=== PATIENT | male | born 1950 | race Two or more races ===

== ENCOUNTER 2023-03-09 08:25 | Inpatient (IN) | payer MEDICARE ==
[~2023-03-09] VITALS: Ht 170.2 cm; Wt 81.6 kg
[2023-03-09] VITALS (8 sets, daily range): BP systolic 126–148; BP diastolic 75–88; TEMP 97.2–98.2; O2SAT 94–100
[~2023-03-09 08:25] MED LIST: FAMOTIDINE/PF INJ 20 MG/2 ML VIAL IV ONE; FENTANYL PF 100MCG/2ML AMPUL ONE; MIDAZOLAM HCL 2 MG/2ML VIAL ONE; ROCURONIUM BROMIDE 50 MG/5 ML ONE; VANCOMYCIN 1 GM VIAL ONE; dexaMETHasone SOD PHOSPHATE 10 MG/ML VIAL ONE
[2023-03-09] MEDS ORDERED: LIDOCAINE 5% OINT 35.44 GM TUBE ONE (08:29)
[2023-03-09] MEDS ORDERED: LIDOCAINE 2%-EPI 1:100,000 30 ML VIAL ONE (10:42)
[2023-03-09] MEDS ORDERED: ONDANSETRON HCL/PF 4 MG/2 ML VIAL IV PRN (12:00)
[2023-03-09] MEDS ORDERED: HYDROMORPHONE 1 MG/1 ML DISP.SYRIN IV PRN (12:00)
[2023-03-09] MEDS ORDERED: IV NS 0.9% 1,000 ML IV PRN (12:00)
[2023-03-09] MEDS ORDERED: ACETAMINOPHEN 325 MG TABLET PO PRN (12:00)
[2023-03-09] MEDS ORDERED: VANCOMYCIN 1 GM in IV D5W 250ml IV SCH (21:00)
== END 2023-03-09 18:09 | disposition home or self-care (01) | DRG 908 ==
LOC: DS 08:25 → MED 08:26
PROVIDERS: ADMIT Internal Medicine; ATTEND Internal Medicine
PROC: 0NSV04Z Reposition Left Mandible with Internal Fixation Device, Open Approach (ICD-10-PCS; principal; 2023-03-09)
PROC: 0NST04Z Reposition Right Mandible with Internal Fixation Device, Open Approach (ICD-10-PCS; 2023-03-09)
PROC: 0NUT07Z Supplement Right Mandible with Autologous Tissue Substitute, Open Approach (ICD-10-PCS; 2023-03-09)
PROC: 0NBV0ZX Excision of Left Mandible, Open Approach, Diagnostic (ICD-10-PCS; 2023-03-09)
PROC: 0NBT0ZX Excision of Right Mandible, Open Approach, Diagnostic (ICD-10-PCS; 2023-03-09)
DX: T86.831 Bone graft failure (principal); M84.48XK Pathological fracture, other site, subsequent encounter for fracture with nonunion; E78.5 Hyperlipidemia, unspecified; I10 Essential (primary) hypertension; I25.10 Atherosclerotic heart disease of native coronary artery without angina pectoris; Y83.2 Surgical operation with anastomosis, bypass or graft as the cause of abnormal reaction of the patient, or of later complication, without mention of misadventure at the time of the procedure; Z95.5 Presence of coronary angioplasty implant and graft; M27.40 Unspecified cyst of jaw; Y92.89 Other specified places as the place of occurrence of the external cause
CPT/HCPCS: 88305-TC; 88311-TC; 88312-TC; 93307-TC; A4223; C1713; G0378; J1100; J2250; J2370; J2405; J2704; J3010; J3370; J3490; J7030; J7040; J7060

== ENCOUNTER 2023-09-20 08:58 | Inpatient (IN) | payer MEDICARE ==
[2023-09-20] MEDS ORDERED: MIDAZOLAM HCL 2 MG/2ML VIAL ONE (10:47)
[2023-09-20] MEDS ORDERED: FAMOTIDINE/PF INJ 20 MG/2 ML VIAL IV ONE (10:47)
[2023-09-20] MEDS ORDERED: ROCURONIUM BROMIDE 50 MG/5 ML ONE (10:47)
[2023-09-20] MEDS ORDERED: FENTANYL PF 100MCG/2ML AMPUL ONE (10:47)
[2023-09-20] MEDS ORDERED: VANCOMYCIN 1 GM VIAL ONE (10:59)
[2023-09-20] MEDS ORDERED: dexaMETHasone SOD PHOSPHATE 1 ML ONE (10:59)
[2023-09-20] MEDS ORDERED: LIDOCAINE 2%-EPI 1:100,000 30 ML VIAL ONE (11:52)
[2023-09-20] MEDS ORDERED: ACETAMINOPHEN 325 MG TABLET PO PRN (14:00)
[2023-09-20] MEDS ORDERED: HYDROMORPHONE 1 MG/1 ML DISP.SYRIN IV PRN (14:00)
[2023-09-20] MEDS ORDERED: IV NS 0.9% 1,000 ML IV PRN (14:00)
[2023-09-20] MEDS ORDERED: ONDANSETRON HCL/PF 4 MG/2 ML VIAL IV PRN (14:00)
[2023-09-20] MEDS ORDERED: ICOS1CAP PO (14:54)
[2023-09-20] MEDS ORDERED: CHOL200059 PO (14:54)
[2023-09-20] MEDS ORDERED: AMLO-212 PO (14:54)
[2023-09-20] MEDS ORDERED: APIX5TAB PO (14:54)
[2023-09-20] MEDS ORDERED: ASPI-1420 PO (14:54)
[2023-09-20] MEDS ORDERED: ATOR40TA PO (14:54)
[2023-09-20] MEDS ORDERED: METO25TA6 PO (14:54)
[2023-09-20] MEDS ORDERED: DRON400T6 PO (14:54)
[2023-09-20] MEDS ORDERED: VITA-354 PO (14:54)
[2023-09-20] MEDS ORDERED: LOSA50TA39 PO (14:54)
[2023-09-20] MEDS ORDERED: VANCOMYCIN 1 GM in IV D5W 250ml IV SCH (23:00)
== END 2023-09-20 17:15 | disposition left against medical advice (07) | DRG 496 ==
LOC: DS 08:58 → MED 08:59
PROVIDERS: ADMIT Nurse Practitioner Acute Care; ATTEND Nurse Practitioner Acute Care
PROC: 0NPW04Z Removal of Internal Fixation Device from Facial Bone, Open Approach (ICD-10-PCS; principal; 2023-09-20)
PROC: 0WB30ZX Excision of Oral Cavity and Throat, Open Approach, Diagnostic (ICD-10-PCS; 2023-09-20)
PROC: 0NBV0ZZ Excision of Left Mandible, Open Approach (ICD-10-PCS; 2023-09-20)
PROC: 0NBT0ZZ Excision of Right Mandible, Open Approach (ICD-10-PCS; 2023-09-20)
DX: T84.69XA Infection and inflammatory reaction due to internal fixation device of other site, initial encounter (principal); T81.83XA Persistent postprocedural fistula, initial encounter; Y72.8 Miscellaneous otorhinolaryngological devices associated with adverse incidents, not elsewhere classified; Y83.8 Other surgical procedures as the cause of abnormal reaction of the patient, or of later complication, without mention of misadventure at the time of the procedure; Y92.009 Unspecified place in unspecified non-institutional (private) residence as the place of occurrence of the external cause; E78.5 Hyperlipidemia, unspecified; I10 Essential (primary) hypertension; I25.10 Atherosclerotic heart disease of native coronary artery without angina pectoris; Z87.891 Personal history of nicotine dependence
CPT/HCPCS: A4223; G0378; J1100; J2250; J2405; J2704; J3010; J3370; J3490; J7030; J7060